=== PATIENT | female | born 1960 | race Two or more races ===

== ENCOUNTER 2016-09-06 13:04 | Day surgery (SDC) | payer BC ==
[~2016-09-06] VITALS: Ht 157.5 cm; Wt 88.8 kg
[2016-09-06] MEDS ORDERED: XANAX (13:55)
[2016-09-06] MEDS ORDERED: ATORVASTATIN (13:55)
[2016-09-06] MEDS ORDERED: PEPCID (13:55)
[2016-09-06] MEDS ORDERED: VITAMIN D (13:55)
[2016-09-06] MEDS ORDERED: OMEPRAZOLE (13:55)
[2016-09-06] MEDS ORDERED: ASPIRIN (13:55)
[2016-09-06] MEDS ORDERED: MECLIZINE (13:55)
[2016-09-06 13:56] VITALS: Ht 157.5 cm; Wt 88.8 kg
[2016-09-06] MEDS ORDERED: LIDOCAINE 2% (SDV) 5 ML INJ ONE (15:20)
[2016-09-06] MEDS ORDERED: MIDAZOLAM 1 MG/ML 2 ML INJ ONE (15:20)
[2016-09-06] MEDS ORDERED: PROPOFOL 20 ML ONE (15:20)
[2016-09-06] MEDS ORDERED: ONDANSETRON 4 MG INJ ONE (15:31)
[2016-09-06 15:39] VITALS: BP 140/81; PULSE 78; RESP 20
[2016-09-06 16:38] VITALS: BP 120/76; PULSE 74; RESP 20
--- NOTE | 2016-09-07 04:50 | GILP ---
DATE OF PROCEDURE: 09/06/2016 PROCEDURE: Esophagogastroduodenoscopy with biopsies. 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 PREMEDICATION: Monitored anesthesia care by anesthesiologist. SURGEON: Loulou Couch MD INSTRUMENT USED: Olympus panendoscope. TECHNIQUE: After informed consent, with the patient/relatives understanding the procedure, its indic ations, potential risks and complications, including but not limited to: allergic reaction, bleeding , perforation or infection, and after all pertinent questions were answered to the patients satisfac tion, the patient/relatives signed witnessed informed consent. Following this, premedication was administered slowly IV push under careful cardiovascular and respi ratory monitoring with pulse oximetry, automatic blood pressure and personnel monitor. Once the sedative effect was achieved the patient was place in the left lateral decubitus, the panen doscope was introduced and advanced under visual control. Careful examination of the upper gastrointestinal tract, both on insertion as well as withdrawal of the instrument disclosed the following findings: ESOPHAGUS: The esophagus is remarkable for a short segment of Martinez esophagus. There is minimal erythema and edema of the mucosa. STOMACH: Upon entrance to the stomach, air was insufflated, the gastric rosenthal distended normally. There is erythema and edema of the mucosa which is moderate in degree. Biopsies were obtained to ru le out H. pylori infection. PYLORUS: The pylorus appears patent and within normal limits, with no evidence of gastric outlet ob struction. DUODENUM: The duodenal mucosa was carefully examined in the duodenal bulb as well as the second por tion of the duodenum and appears unremarkable with no evidence of duodenitis, ulcer or neoplasm. The instrument was then withdrawn, the patient tolerated the procedure well and was transfer out of the endoscopy suite awake, and in good condition to continue recovery under observation IMPRESSION: 1. Short segment Martinez esophagus. Four quadrant biopsies were obtained. 2. Moderate gastritis, rule out Helicobacter pylori infection. PLAN: We will continue PPI therapy, and further recommendation will depend on the patient's clinica l course as well as review of biopsies. Surveillance EGD in 1 to 2 years is recommended. Dictated By: LOUOLU COUCH MS/ELENI Conf#: [id number] DID#: [id number]
== END 2016-09-06 17:34 | disposition home or self-care (01) ==
LOC: GIL 13:04
PROVIDERS: ATTEND Internal Medicine Gastroenterology
DX: K22.70 Barrett's esophagus without dysplasia (principal); K29.60 Other gastritis without bleeding
CPT/HCPCS: 43239; 88305; 88312; 88313; J2250; J2405; Z7610